=== PATIENT | male | born 1955 | race Caucasian/White ===

== ENCOUNTER 2019-01-25 07:26 | Day surgery (SDC) | payer MEDICARE, MEDICAID ==
[2019-01-25] MEDS ORDERED: SIMETHICONE 40 MG/0.6 ML ML ONE (08:05)
[2019-01-25] MEDS ORDERED: MIDAZOLAM HCL 5 MG/5 ML VIAL ONE (08:05)
[2019-01-25] MEDS: MIDAZOLAM HCL 5 MG/5 ML VIAL ONE ×2 (09:07→09:09)
[2019-01-25] MEDS: fentaNYL CITRATE/PF 100 MCG/2 ML AMP ONE ×2 (09:07→09:09)
[2019-01-25 12:37] VITALS: BP_SYST 113
== END 2019-01-25 10:10 | disposition still patient (30) ==
LOC: SDS 07:26
PROVIDERS: ATTEND Surgery
DX: K64.8 Other hemorrhoids (principal); M19.90 Unspecified osteoarthritis, unspecified site; I10 Essential (primary) hypertension; E78.5 Hyperlipidemia, unspecified
CPT/HCPCS: 45380; 88305; J2250; J3010

== ENCOUNTER 2019-04-13 12:03 | Day surgery (SDC) | payer MEDICARE, MEDICAID ==
[~2019-04-13] VITALS: Ht 162.6 cm; Wt 76.2 kg
[2019-04-13] MEDS ORDERED: LR 1,000 ML IV.SOLN IV ONE (13:10)
[2019-04-13] MEDS ORDERED: SEVOFLURANE 15 MIN GAS INH ONE (13:10)
[2019-04-13] MEDS ORDERED: MIDAZOLAM HCL 5 MG/5 ML VIAL IVP ONE (13:10)
[2019-04-13] MEDS ORDERED: PROPOFOL 200MG/ 20ML VIAL (DIPRIVAN) IV ONE (13:10)
[2019-04-13] MEDS ORDERED: CEFAZOLIN 2 GM IVPB PREMIX 50 ML IV ONE (13:10)
[2019-04-13] MEDS ORDERED: ROCURONIUM BROMIDE 10 MG/ML (ZEMURON) IV ONE (13:10)
[2019-04-13] MEDS ORDERED: fentaNYL CITRATE/PF 100 MCG/2 ML AMP IVP ONE (13:10)
[2019-04-13] MEDS ORDERED: NS IRRIG SOLN 1000 ML IR ONE (13:10)
[2019-04-13] MEDS ORDERED: ONDANSETRON HCL 4 MG/2 ML VIAL IVP ONE (13:10)
[2019-04-13] MEDS ORDERED: KETOROLAC TROMETHAMINE 30 MG VIAL IVP ONE (13:10)
[2019-04-13] MEDS ORDERED: ALLO300T2 PO (13:20)
[2019-04-13] MEDS ORDERED: METO50TA7 PO (13:20)
[2019-04-13] MEDS ORDERED: LISI10TA5 PO (13:20)
[2019-04-13] MEDS ORDERED: SIMV40TA2 PO (13:20)
[2019-04-13] MEDS ORDERED: fentaNYL CITRATE/PF 100 MCG/2 ML AMP IVP PRN (14:15)
[2019-04-13] MEDS ORDERED: ONDANSETRON HCL 4 MG/2 ML VIAL IVP PRN ×2 (14:15→15:15)
[2019-04-13] MEDS: fentaNYL CITRATE/PF 100 MCG/2 ML AMP IVP PRN ×2 (15:10→15:25)
[2019-04-13] MEDS ORDERED: fentaNYL CITRATE/PF 100 MCG/2 ML AMP ONE ×2 (15:12→15:28)
[2019-04-13] MEDS ORDERED: ACETAMINOPHEN/CODEINE 300 MG-30 MG TABLET PO PRN (15:15)
[2019-04-13 16:00] VITALS: BP_SYST 126
--- NOTE | 2019-04-13 16:00 | NUR ---
ADMISSION: The patient, MILTON ROY, 64 y/o, M admitted by JESSICA WORLEY MD, was given written information regarding hospital policies, unit procedures and contact persons.
[2019-04-13 16:10] VITALS: BP_SYST 126
--- NOTE | 2019-04-13 16:30 | NUR ---
opening note patient is resting in bed, family at the bedside, A&Ox4, assessment completed, educated concrete block layer light system and plan of care, patient verbalized understanding, IV site clean and dressing intact, abdominal incision dressing intact, no other needs at this time, fall/safety precautions in place.
[2019-04-13] MEDS: MORPHINE 4 MG/ML INJ. SYRINGE IVP PRN ×2 (16:47→21:09)
--- NOTE | 2019-04-13 18:47 | NUR ---
closing note patient is resting in bed, complaining of abdominal pain, educated on medication use and side effects, patient verbalized understanding, I asked patient if he wanted to attempt to sit on the edge of the bed, patient stated he wants to wait until the pain medication's effects kicks in later, no other needs addressed at this time, iv site clean with no signs of infiltration, will endorse report to noc shift to finish bag of LR and then saline lock the patient and for them to do the pain reassessment and the patient needs to void by 2200 and to ambulate with assist.
[2019-04-13 20:00] VITALS: BP_SYST 142
--- NOTE | 2019-04-13 21:00 | NUR ---
OPENING NOTE RECEIVED ENDORSEMENT REPORT FROM NURSE COONEY AT BEDSIDE. PT IS AOX4. NO SOB NOTED. NO DISTRESS NOTED. CHEST RISE EVEN AND UNLABORED. NO S/S OF PAIN NOTED. IV CLEAN, DRY, PATENT AND INTACT. SURGICAL DRESSING CLEAN, DRY AND INTACT. ORIENTED PT TO HOSPITAL ROOM AND HOW TO USE ROOM PHONE AND CALL LIGHT TO CALL FOR ASSISTANCE. PT UNABLE TO VERBALIZE UNDERSTANDING. SAFETY MEASURES IN PLACE. CALL LIGHT/ROOM PHONE WITHIN REACH, BED ALARM ON, BED WHEELS LOCKED, BED IN LOWEST POSITION, BED WHEELS LOCKED, SIDE RAILS UP X3, BEDSIDE TABLE WITHIN REACH. SEIZURE PRECAUTIONS IN PLACE. NO OTHER NEEDS AT THIS TIME. WILL CONTINUE TO MONITOR PT AND CONTINUE PT'S POC.
--- NOTE | 2019-04-13 21:10 | NUR ---
[facility] PT REPORTS 8/10 ABD PAIN. PRN MORPHINE 4 MG IVP ADMINISTERED ORDERED. PT TOLERATED WELL. NO OTHER NEEDS AT THIS TIME. SAFETY MEASURES IN PLACE. WILL CONTINUE TO MONITOR PT.
--- NOTE | 2019-04-13 23:15 | NUR ---
RN ROUNDS PT RESTING IN BED. NO SOB NOTED. NO DISTRESS NOTED. CHEST RISE EVEN AND UNLABORED. NO S/S OF PAIN NOTED. NO NEEDS AT THIS TIME. SAFETY MEASURES IN PLACE. WILL CONTINUE TO MONITOR PT AND CONTINUE PT'S POC.
--- NOTE | 2019-04-14 01:30 | NUR ---
RN ROUNDS PT RESTING IN BED WITH EYES CLOSED. NO SOB NOTED. NO DISTRESS NOTED. CHEST RISE EVEN AND UNLABORED. NO S/S OF PAIN NOTED. NO NEEDS AT THIS TIME. SAFETY MEASURES IN PLACE. WILL CONTINUE TO MONITOR PT AND CONTINUE PT'S POC.
[2019-04-14 02:14] VITALS: BP_SYST 130
--- NOTE | 2019-04-14 06:08 | NUR ---
CLOSING NOTE PT RESTING IN BED. NO SOB NOTED. NO DISTRESS NOTED. CHEST RISE EVEN AND UNLABORED. NO S/S OF PAIN NOTED. IV CLEAN, DRY, PATENT AND INTACT. IVF INFUSING WELL. ALL SCHEDULED MEDICATIONS ADMINISTERED ORDERED. ALL NEEDS MET THROUGHOUT SHIFT. PAIN MANAGED THROUGHOUT SHIFT. SAFETY MEASURES IN PLACE THROUGHOUT SHIFT. NO OTHER NEEDS AT THIS TIME. WILL CONTINUE PT'S POC. PT CARE WILL BE ENDORSED TO DAY NURSE AT BEDSIDE.
[2019-04-14] MEDS: MORPHINE 4 MG/ML INJ. SYRINGE IVP PRN ×2 (06:24→12:24)
--- NOTE | 2019-04-14 07:55 | NUR ---
opening note patient is resting in bed, A&Ox4, assessment completed, educated contact center representative light system and plan of care, patient verbalized understanding, IV site clean and dressing intact, abdominal incision dressing intact, no other needs at this time, fall/safety precautions in place, patient has been able to ambulate steady to use the restroom.
[2019-04-14 08:00] VITALS: BP_SYST 139
--- NOTE | 2019-04-14 10:05 | NUR ---
Nutrition Update Jona Scale 16 noted. Pt admitted for other specified diseases of appendix. Diet: clear liquid BMI: 28.8 kg/m2 RD to follow per nutrition care standards.
[2019-04-14 12:00] VITALS: BP_SYST 137
--- NOTE | 2019-04-14 12:24 | NUR ---
pain medication patient complaining of abdominal pain, educated on med use and side effects, patient verbalized understanding, no other needs at this time, fall/safety precautions in place.
[2019-04-14 15:33] VITALS: BP_SYST 137
== END 2019-04-14 13:45 | disposition home or self-care (01) ==
LOC: SDS 12:03 → UNDOADMIN 12:03 → UNDOADMOB 12:03 → SMU 12:03 → INTOOBSV 12:03 → SMU 12:26 → EDSTATUS 13:00 → UNDODISOB 04-14 13:45 → SDS 04-14 13:45 → UNDODISIN 04-14 13:45
PROVIDERS: ATTEND Surgery
DX: D12.1 Benign neoplasm of appendix (principal); K66.0 Peritoneal adhesions (postprocedural) (postinfection); Z53.31 Laparoscopic surgical procedure converted to open procedure
CPT/HCPCS: 44950; 87070 ×2; 87075; 87081 ×2; 87101; 88304; 96374; 96375; 96376 ×2; C1727; J0690; J1885; J2250; J2270 ×2; J2405; J2704; J3010; J7120 ×2; G0378

== ENCOUNTER 2019-12-28 06:55 | Day surgery (SDC) | payer MEDICARE, MEDICAID ==
[~2019-12-28 06:55] MED LIST: ALLO300T2 PO; LISI10TA5 PO; METO50TA7 PO; SIMV40TA2 PO
[2019-12-28] MEDS ORDERED: MIDAZOLAM HCL 5 MG/5 ML VIAL ONE (07:46)
[2019-12-28] MEDS ORDERED: fentaNYL CITRATE/PF 100 MCG/2 ML AMP ONE (07:46)
[2019-12-28] MEDS ORDERED: SIMETHICONE 40 MG/0.6 ML ML ONE (07:47)
[2019-12-28] MEDS: MIDAZOLAM HCL 5 MG/5 ML VIAL ONE ×2 (08:15→08:22)
[2019-12-28 10:12] VITALS: BP_SYST 130
== END 2019-12-28 09:20 | disposition home or self-care (01) ==
LOC: SDS 06:55 → SMU 06:55 → SDS 09:20
PROVIDERS: ATTEND Surgery
DX: K38.8 Other specified diseases of appendix (principal); K64.8 Other hemorrhoids; Z85.038 Personal history of other malignant neoplasm of large intestine
CPT/HCPCS: 45378; G0378; J2250; J3010; J7030